=== PATIENT | female | born 2000 | race African-American/Black ===

== ENCOUNTER 2023-01-20 08:59 | Emergency (ER) | payer MEDICAID, SELFPAY ==
--- NOTE | ~2023-01-20 | US_ITS ---
US OB follow up DATE: 01/20/2023 11:16 INDICATION: Abdominal pain for one day TECHNIQUE: Real-time imaging and Doppler analysis COMPARISON: None FINDINGS: Live hall intrauterine gestation, fetus in longitudinal lie, vertex presentation with heart rate of 141 bpm. The placenta is anterior, lower margin approximately 2.1 cm above the cervix. Subjectively normal amount of amniotic fluid. Biparietal diameter 3.12 cm; 15 weeks 6 days Head circumference 11.53 cm; 15 weeks 5 days Abdominal circumference 9.36 cm; 15 weeks 4 days Femur length 1.81 cm; 15 weeks 3 days Composite age by [place] formula is 15 weeks 5 days +/- 1 week 1 day with CARLITO of 07/09/2023, compared to 07/2023 by LMP. Estimated weight is 125 +/- 19 grams. Estimated weight-GP: 18%. Head circumference/abdominal circumference 1.23, within normal range of 1.0, 671.35 Femur length/head circumference 15.67, within normal range of 13.87-16.67. IMPRESSION: Live hall intrauterine gestation, estimated gestational age of 15 weeks 5 days +/- 1 week 1 day; CARLITO: 07/09/2023 Reviewed, dictated and finalized at [facility] Reviewed, dictated and finalized at [facility].
[2023-01-20 09:00] VITALS: BP 102/69; PULSE 100; RESP 18; TEMP 36.1; O2SAT 100
[2023-01-20 09:34] VITALS: BP 95/81; PULSE 91; RESP 18; O2SAT 100
--- NOTE | 2023-01-20 10:03 | ED.GENADULT ---
HPI - General Adult General Chief complaint: Headache Stated complaint: migraine, abd pain, 15 weeks Time Seen by Provider: 01/20/23 09:04 Source: patient Mode of arrival: ambulatory Limitations: no limitations History of Present Illness HPI narrative: This is a 22-year-old female who is around 15 weeks and presents to the ED with chief complaint of headache and abdominal pain since 7 PM last night. Reports that the headache kind of came out of nowhere and she does not have a history of migraines. She does state that she has had some increased headaches during this but they usually only last an hour. Reports a have 10 headache and located in the bilateral frontal sides and radiates throughout the head. She also reports mild abdominal pain that is sharp at times but seems to be more intermittent. She states that this is less of a concern for her at this point. Endorses occasional nausea but no vomiting. Endorses photophobia. States she has not taken any medications for this. Denies fevers, chills, congestion, sore throat, cough, chest pain, shortness of breath, diarrhea, urinary problems. Denies syncope, head injury, numbness, weakness, speech change, vision loss. She states her OB is Dr. Osman and she had an ultrasound confirming a few weeks ago. Related Data Allergies Allergy/AdvReac Type Severity Reaction Status Date / Time peanut Allergy Intermediate Swelling Verified 01/20/23 09:33 Review of Systems Review of Systems: All systems as dictated in HPI Exam Narrative: GENERAL: Well-appearing, well-nourished, and in no acute distress. HEAD: Normocephalic, atraumatic. EYES: PERRLA and EOMI. photophobia present. ENT: Nares clear, no rhinorrhea or epistaxis. Mucous membranes moist. Oropharynx without tonsillar hypertrophy exudate or other lesions. NECK: Supple. No adenopathy or masses. CHEST: No respiratory distress. Clear to auscultation. No wheezes rales or rhonchi HEART: Regular rate and rhythm. No murmur heard. Normal peripheral pulses. ABDOMEN: Soft, nontender, nondistended, normal active bowel sounds. MSK: Normal range of motion. No edema. SKIN: Warm, dry, no rash. NEURO: Alert and oriented x3. No focal deficits. Cranial nerves II through XII intact. 5 out of 5 strength and sensation in the upper and lower extremities. Coordination intact. Ambulatory. PSYCH: Normal mood and affect. Course Course Emergency Course: Consult 12 00: Spoke with Dr. Reveles (OB) who agrees that she is able to be discharged home. Recommends Excedrin tension headache. Does not feel that she needs head imaging at this point. He is comfortable with her following up as scheduled in 2 days. Reevaluation 1205: patient feeling much much improved from earlier. She would like to go home and follow-up as scheduled with her OB appointment in 2 days. Vital Signs Vital signs: Vital Signs Temperature 97.0 F L 01/20/23 09:00 Pulse Rate 100 01/20/23 09:00 Respiratory Rate 18 01/20/23 09:00 Blood Pressure 102/69 01/20/23 09:00 Pulse Oximetry 100 01/20/23 09:00 Oxygen Delivery Room Air 01/20/23 09:00 Temperature 97.0 F L 01/20/23 09:00 Pulse Rate 86 01/20/23 12:12 Respiratory Rate 18 01/20/23 12:12 Blood Pressure 98/74 L 01/20/23 12:12 Pulse Oximetry 99 01/20/23 12:12 Oxygen Delivery Room Air 01/20/23 09:00 Medical Decision Making MDM Narrative Medical decision making narrative: This is a 22-year-old female who presents to the ED with chief complaint of migraine headache and abdominal pain beginning at 10 PM last night. Vitals are normal. Exam is benign. Basic labs and urinalysis are unremarkable. OB Ultrasound: Live hall intrauterine gestation, estimated gestational age of 15 weeks 5 days +/- 1 week 1 day; CARLITO: 07/09/2023?. She has improved greatly with Tylenol and Benadryl. She feels ready to go home on my reevaluation. Symptoms consistent with mi
[2023-01-20] MEDS: ACETAMINOPHEN 500 MG TABLET 1000 MG PO (10:11)
[2023-01-20] MEDS: diphenhydrAMINE HCl INJ 50 MG/ML VIAL 25 MG IV PUSH (10:12)
[2023-01-20 10:20] LABS: Basophils Percent Auto 0.3 % (0.2-1.2); Eosinophils Absolute Auto 0.1 K/mm3 (0-0.3); Eosinophils Percent Auto 1.2 % (0-4.4); Hematocrit 32.4 % (37.0-47.0); Immature Granulocyte Absolute 0.02 K/mm3 (0.00-0.031); Immature Granulocyte Percent A 0.2 % (0-0.5); Lymphocytes Absolute Auto 0.91 K/mm3 (0.9-3.2); Lymphocytes Percent Auto 9.6 % (18.3-44.2); Mean Corpuscular Hemoglobin 33.3 pg (26-34); Mean Corpuscular Volume 98.2 fl (80-100); Mean Platelet Volume 11.9 fl (7.4-10.4); Monocytes Absolute Auto 0.6 K/mm3 (0.1-0.6); Monocytes Percent Auto 6.2 % (2.6-8.5); Neutrophils Absolute Auto 7.8 K/mm3 (1.3-6.7); Neutrophils Percent Auto 82.5 % (45.5-73.1); Platelet Count Result 161 k/mm3 (150-375); Red Cell Distribution Width 12.2 % (11.5-14.5); White Blood Count 9.5 K/mm3 (4.5-10.0)
[2023-01-20 10:21] LABS: Appearance Urine Clear (Clear); Bilirubin Urine Negative (Negative); Blood Urine Negative (Negative); Color Urine Yellow (Yellow); Glucose Urine UA Negative (Negative); Ketones Urine Negative (Negative); Leukocyte Esterase Ur Negative LEU/UL (Negative); Nitrate Urine Negative (Negative); Protein Urine Negative (Negative); Specific Grav Ur 1.005 (1.001-1.035); Urobilinogen Urine 0.2 mg/dL (<2.0); pH Urine 7.5 (5.0-9.0)
[2023-01-20 10:32] LABS: Alanine Aminotransferase 36 U/L (6-35); Albumin Level 4.1 g/dL (3.5-5.1); Alkaline Phosphatase 46 U/L (38-126); Anion Gap 5 mmol/L (8-16); Aspartate Amino Transferase 31 U/L (14-36); Bilirubin,Total 0.3 mg/dL (0.2-1.3); Blood Urea Nitrogen 7 mg/dL (7-17); Calcium 9.2 mg/dL (8.4-10.2); Carbon Dioxide 26 mmol/L (22-30); Chloride 103 mmol/L (98-107); Estimated CRCL calculation 130 ml/min; Estimated Glomerular Filt Rate > 60; Glucose 81 mg/dL (65-110); Potassium 3.9 mmol/L (3.4-5.0); Sodium 134 mmol/L (137-145)
[2023-01-20 10:36] LABS: Add Urine Microscopic? NO
--- NOTE | 2023-01-20 11:21 | PC.NURSE ---
Patient report received from NEVAEH Tran. All questions answered and care of patient assumed.
[2023-01-20 12:12] VITALS: BP 98/74; PULSE 86; RESP 18; O2SAT 99
== END 2023-01-20 12:14 | disposition home or self-care (01) ==
PROVIDERS: Emergency Provider Physician Assistant; PCP Obstetrics & Gynecology
DX: O26.892 Other specified pregnancy related conditions, second trimester (principal); R51.9 Headache, unspecified; Z3A.15 15 weeks gestation of pregnancy
CPT/HCPCS: 36415; 76816; 80053; 81003; 85025; 96374; 99284; A9270; J1200

== ENCOUNTER 2023-02-25 18:03 | Observation (INO) | payer BC, SELFPAY ==
[2023-02-25 18:45] VITALS: PULSE 103; RESP 16; TEMP 37.3
[2023-02-25 18:47] VITALS: BP 103/56; PULSE 107
[2023-02-25 18:56] LABS: Appearance Urine Cloudy (Clear); Bacteria Urine 2+ /hpf; Bilirubin Urine Negative (Negative); Blood Urine Negative (Negative); Color Urine Yellow (Yellow); Glucose Urine UA Negative (Negative); Ketones Urine Negative (Negative); Leukocyte Esterase Ur 3+ LEU/UL (NEGATIVE); Nitrate Urine Negative (Negative); Non Pathogenic Casts 0-2; Protein Urine 1+ mg/dL (Negative); RBC Urine 0-2 /hpf (0-2); Specific Grav Ur 1.014 (1.001-1.035); Squamous Epithelial Cell Urine Moderate /hpf (Few); WBC Urine >100 /hpf (0-3)
[2023-02-25 19:01] LABS: Add Urine Microscopic? YES
[2023-02-25] MEDS: ACETAMINOPHEN 500 MG TABLET 1000 MG PO (19:36)
--- NOTE | 2023-02-25 20:35 | PC.NURSE ---
called Dr. Reveles notified pt admission for back pain with cramping. UA result and pain control reported. discharge order received with arturo
[2023-02-25] MEDS: NITROFURANTOIN MONOHYD MACROCR 100 MG CAP PO (20:40)
--- NOTE | 2023-03-24 21:22 | PM.OBTRLD ---
OB - Triage/Final Diagnosis Visit Information Comments/Additional reasons for admission: I have assessed the risk for this patient, Yonathan Carroll, and determined that she would benefit from observation care. Evaluation Laboratory results: Laboratory Tests 02/25/23 18:31 Urine Color Yellow Urine Appearance Cloudy H Urine pH 8.0 Ur Specific [employer] 1.014 Urine Protein 1+ H Urine Glucose (UA) Negative Urine Ketones Negative Ur Blood (Man) Negative Urine Nitrate Negative Urine Bilirubin Negative Urine Urobilinogen 1.0 Ur Leukocyte Esterase 3+ H Urine RBC 0-2 Urine WBC >100 H Ur Squamous Epith Cells Moderate Urine Bacteria 2+ H Urine Casts 0-2 Final Diagnosis (1) Back pain affecting : Code(s): O99.891 - Other specified diseases and conditions complicating ; M54.9 - Dorsalgia, unspecified Status: Acute
--- NOTE | 2023-03-24 21:29 | PM.OBPNVD ---
OB - PN: Subj Subjective Date/time seen: 03/24/23 21:29 22-year-old had approximately 20 weeks with fever and low back pain. She is evaluated. She had a Urinalysis and was found have urinary tract infection. She was treated for urinary tract infection. She is discharged home. Interval history: 22-year-old OB - PN A/P Assessment and Plan (1) Fever: Code(s): R50.9 - Fever, unspecified Status: Acute Plan 03/24/23 21:29 22-year-old had approximately 20 weeks with fever and low back pain. She is evaluated. She had a Urinalysis and was found have urinary tract infection. She was treated for urinary tract infection. She is discharged home. Time Spent With Patient Time: Total time spent is greater than 50% in coordination of care (as documented) at patient's floor/unit and/or counseling patient: Review of Systems Review of Systems: All systems reviewed & are unremarkable except as noted in HPI and below Constitutional: Constitutional: Denies chills, Denies fatigue, Denies fever(s) and Denies weakness Eyes: Eyes: Denies blurry vision, Denies change in vision, Denies loss of peripheral vision, Denies loss of vision, Denies other visual disturbances and Denies eye pain ENT: Denies vertigo, Denies dizziness, Denies hearing loss, Denies mouth pain, Denies nasal obstruction, Denies neck mass and Denies neck pain Cardiovascular: Cardiovascular: Denies chest pain, Denies diaphoresis, Denies syncope, Denies leg edema and Denies dyspnea Respiratory: Respiratory: Denies chest congestion, Denies cough, Denies hemoptysis, Denies dyspnea and Denies wheezing Gastrointestinal: Gastrointestinal: Denies abdominal pain, Denies constipation, Denies diarrhea, Denies nausea and Denies vomiting Genitourinary: Genitourinary: Denies hematuria, Denies change in libido, Denies nocturia, Denies genital lesions, Denies flank pain and Denies urinary urgency Musculoskeletal: Musculoskeletal: Denies abnormal gait, Denies back pain, Denies myalgias, Denies arthralgias, Denies joint swelling, Denies muscle weakness and Denies neck pain Integumentary/Breasts: Skin/Breast: Denies swelling, Denies breast pain, Denies breast mass, Denies dry skin, Denies nipple discharge, Denies unusual bruising and Denies jaundice Neurologic: Denies Neuro-related abnormal movements, Denies Abnormal speech present, Denies abnormal gait, Denies behavioral changes, Denies confusion, Denies vertigo, Denies dizziness, Denies syncope, Denies loss of vision, Denies memory loss, Denies convulsions and Denies weakness Psychiatric: Psychiatric: Denies abnormal sleep pattern, Denies behavioral changes, Denies change in libido, Denies confusion, Denies depression, Denies anhedonia and Denies memory loss Endocrine: Endocrine: Reports no additional endocrine complaints, Denies change in libido and Denies fatigue Hematologic/Lymphatic: Hematologic/Lymphatic: Reports no additional hematologic/lymphatic complaints Allergic/Immunologic: Allergic/Immunologic: Reports no additional allergic/immunologic complaints and Denies wheezing Exam Const: General: cooperative, healthy appearing, comfortable and no acute distress Orientation/consciousness: oriented to person, oriented to place and oriented to time HENMT: Head: normal to inspection Ears: external ears normal Face/Nose/Sinus: Normal external nose present and normal facial exam Face and sinus: normal facial exam Eyes: General: appearance normal, both eyes and all related structures Neck: Neck: normal visual inspection, trachea midline and supple Resp: Auscultation: clear to auscultation bilaterally, no crackles, no rales, no rhonchi and no wheezes Cardio: Rate: regular rate Rhythm: regular rhythm Heart sounds: no click, no murmurs and no rubs GI: GI Palp: No abdominal tenderness, No Soft to palpation, No Tenderness to palpation present (GI) and No Palpable mass present Auscultation: normal
== END 2023-02-25 20:46 | disposition home or self-care (01) ==
PROVIDERS: Admitting Provider Obstetrics & Gynecology; Visit Provider Obstetrics & Gynecology
DX: O99.891 Other specified diseases and conditions complicating pregnancy (principal); M54.9 Dorsalgia, unspecified; R50.9 Fever, unspecified; Z3A.20 20 weeks gestation of pregnancy
CPT/HCPCS: 81001; 87077; 87086; 87186; A9270; G0378; G0379

== ENCOUNTER 2023-02-28 08:15 | Observation (INO) | payer BC, SELFPAY ==
[2023-02-28 08:39] VITALS: BP 113/66; PULSE 128; RESP 18; TEMP 38.2
[2023-02-28 08:48] VITALS: TEMP 38.2
[2023-02-28 09:09] VITALS: TEMP 38.2
[2023-02-28] MEDS: ACETAMINOPHEN 500 MG TABLET 1000 MG PO (09:09)
[2023-02-28] MEDS: cefTRIAXone 1 GM VIAL IM (09:10)
--- NOTE | 2023-02-28 09:18 | OBADM ---
This patient, Yonathan Carroll, admitted to the OB room OB Post 116 for observation. Patient/family oriented to hospital policies and general routines including ID bracelet, bed and alarms, visiting hours, pain management, procedures, bathroom and other care routines, personal items, smoking policy, room service/diet, and visiting hours. Patient/Family are encouraged to report perceived risks to care and to ask questions if they do not understand what they are told or what they should do.
[2023-02-28 10:00] VITALS: TEMP 37.1
[2023-02-28 11:04] VITALS: BP 99/57; PULSE 95; TEMP 36.2
--- NOTE | 2023-03-25 12:16 | PM.OBTRLD ---
OB - Triage/Final Diagnosis Visit Information Comments/Additional reasons for admission: I have assessed the risk for this patient, Yonathan Carroll, and determined that she would benefit from observation care. Final Diagnosis (1) Fever: Code(s): R50.9 - Fever, unspecified Status: Acute
== END 2023-02-28 11:32 | disposition home or self-care (01) ==
PROVIDERS: Admitting Provider Obstetrics & Gynecology; Visit Provider Obstetrics & Gynecology
DX: O99.891 Other specified diseases and conditions complicating pregnancy (principal); R50.9 Fever, unspecified; Z3A.21 21 weeks gestation of pregnancy
CPT/HCPCS: 96372; A9270; G0378; G0379; J0696

== ENCOUNTER 2023-06-07 11:26 | Observation (INO) | payer OTHER, SELFPAY ==
[2023-06-07] VITALS (7 sets, daily range): BP systolic 100–111; BP diastolic 52–66; PULSE 90–98; TEMP 36.4; BMI 23.1
--- NOTE | ~2023-06-07 | US_ITS ---
EXAMINATION: US OB follow up DATE: 06/07/2023 12:52 INDICATION: Bleeding. Third trimester. TECHNIQUE: Real-time ultrasound of the pelvis was performed. COMPARISON: Ultrasound 01/20/2023 FINDINGS: There is a single living fetus in vertex presentation. The placenta is anterior. heart rate is 143 beats per minute (bpm). The amniotic fluid index is 15.0 cm, which is normal. The following biometric data were obtained: Biparietal diameter (BPD): 8.5 cm; head circumference (HC): 32.0 cm; abdominal circumference (AC): 29 .3 cm; femur length (FL): 6.5 cm. These measurements are concordant. Estimated weight is 2260 g +/- 339 g, which correlates with the 11th percentile when 07/09/23 is used as estimated date of delivery. As single measurements, these parameters are each equal to the following estimated gestational ages: BPD: 34 weeks 2 days. HC: 36 weeks 0 days. AC: 33 weeks 2 days. FL: 33 weeks 3 days. estimated gestational age based solely on measurements from this exam is 34 weeks 2 days +/- 2 weeks 3 days. IMPRESSION: 1. Single living fetus in vertex presentation. 2. Estimated weight is 2260 g +/- 339 g, which correlates with the 11th percentile when 07/09/23 is used as estimated date of delivery. Reviewed, dictated and finalized at location [facility]. INSPECTOR
--- NOTE | 2023-06-07 11:26 | OBADM ---
This patient, Yonathan Carroll, admitted to the OB room OB Post 113 for observation. Patient/family oriented to hospital policies and general routines including ID bracelet, bed and alarms, visiting hours, pain management, procedures, bathroom and other care routines, personal items, smoking policy, room service/diet, and visiting hours. Patient/Family are encouraged to report perceived risks to care and to ask questions if they do not understand what they are told or what they should do.
--- NOTE | 2023-06-07 11:40 | PC.NURSE ---
pt reports being a clinical in [place] when she went to the bathroom there she had blood in the toilet and on the paper when she wiped. Her instructor then had her go to the ER for evaluation. The pt stated that they were doing the ultrasound but stopped because the ER provider told them that Dr. Reveles wanted her to come to [place] they stopped. The pt then came to L&D at [place]. On arrival pt went to the bathroom and she said she didnt have any blood in the toilet but did have some on the tissue. Pt denies blood in her underwear. She denies cramps and contractions at this time but pt stated she did have some cramping this AM before using the bathroom in [place].
--- NOTE | 2023-06-07 13:25 | PC.NURSE ---
Dr. Reveles notified of pt ultrasound. tracing reviewed with provider. MD would like further information on placenta. Radiologist to be contacted. Regular diet order obtained.
--- NOTE | 2023-06-07 14:26 | PC.NURSE ---
Dr. Reveles updated with placenta update from ultrasound. tracing reviewed. Uterine irritability discussed. MD doyle with give bolus of LR.
[2023-06-07] MEDS: LACTATED RINGERS 1,000 ML 999 ML IV CONT (14:40)
--- NOTE | 2023-06-07 15:36 | PC.NURSE ---
Dr. Reveles updated on pt status. tracing and uterine activity reviewed with provider. Pt denies pain. Pt does not feel contractions. Discharge order received.
--- NOTE | 2023-07-04 21:16 | PM.OBTRLD ---
OB - Triage/Final Diagnosis Visit Information Comments/Additional reasons for admission: I have assessed the risk for this patient, Yonathan Carroll, and determined that she would benefit from observation care. Final Diagnosis (1) Vaginal bleeding during : Code(s): O46.90 - Antepartum hemorrhage, unspecified, unspecified trimester Status: Acute
== END 2023-06-07 16:04 | disposition home or self-care (01) ==
PROVIDERS: Admitting Provider Obstetrics & Gynecology; Visit Provider Obstetrics & Gynecology
DX: O46.93 Antepartum hemorrhage, unspecified, third trimester (principal); Z3A.35 35 weeks gestation of pregnancy
CPT/HCPCS: 76816; G0379; J7120

== ENCOUNTER 2023-06-24 13:08 | Outpatient (RCR) | payer OTHER, SELFPAY ==
[2023-06-24 13:58] VITALS: BP 110/65; PULSE 108
== END 2023-09-22 23:59 | disposition home or self-care (01) ==
LOC: ANHOBOP 13:08
PROVIDERS: Visit Provider Obstetrics & Gynecology
DX: O36.8130 Decreased fetal movements, third trimester, not applicable or unspecified (principal); Z3A.38 38 weeks gestation of pregnancy
CPT/HCPCS: 59025

== ENCOUNTER 2023-07-11 06:09 | Inpatient (IN) | payer OTHER, SELFPAY ==
[2023-07-11] VITALS (50 sets, daily range): BP systolic 75–140; BP diastolic 48–113; PULSE 59–130; RESP 16; TEMP 36.4–37.2; O2SAT 93–100; BMI 23.6
[2023-07-11 06:57] LABS: Basophils Percent Auto 0.3 % (0.2-1.2); Eosinophils Percent Auto 0.6 % (0-4.4); Hematocrit 30.4 % (37.0-47.0); Hemoglobin 9.8 g/dL (12.0-15.0); Immature Granulocyte Absolute 0.04 K/mm3 (0.00-0.031); Immature Granulocyte Percent A 0.6 % (0-0.5); Lymphocytes Absolute Auto 1.42 K/mm3 (0.9-3.2); Lymphocytes Percent Auto 21.5 % (18.3-44.2); Mean Corpuscular HGB Conc 32.2 g/dl (32-36); Mean Corpuscular Hemoglobin 29.8 pg (26-34); Mean Corpuscular Volume 92.4 fl (80-100); Mean Platelet Volume 10.7 fl (7.4-10.4); Monocytes Absolute Auto 0.6 K/mm3 (0.1-0.6); Monocytes Percent Auto 9.1 % (2.6-8.5); Neutrophils Absolute Auto 4.5 K/mm3 (1.3-6.7); Neutrophils Percent Auto 67.9 % (45.5-73.1); Platelet Count Result 251 k/mm3 (150-375); Red Blood Count 3.29 M/mm3 (4.2-5.4); Red Cell Distribution Width 14.9 % (11.5-14.5); White Blood Count 6.6 K/mm3 (4.5-10.0)
[2023-07-11] MEDS: LACTATED RINGERS 1,000 ML 125 ML IV CONT (07:03)
[2023-07-11] MEDS: OXYTOCIN 30 UNITS/NS 500 ML 30 UNITS/500 ML BAG 6 UNITS IV CONT (07:05)
--- NOTE | 2023-07-11 07:25 | LDADM ---
This patient, Yonathan Carroll, was admitted to Labor/Delivery/Recovery 104 on 07/11/23 at 06:09. Plans for labor, pain management and were discussed with patient. Patient/family oriented to hospital policies and general routines including ID bracelet, bed and alarms, visiting hours, pain management, procedures, bathroom and other care routines, personal items, smoking policy, room service/diet and guest tray routines, infant security routines, and visiting hours. Patient/Family are encouraged to report perceived risks to care and to ask questions if they do not understand what they are told or what they should do. See OBIX for further documentation.
--- NOTE | 2023-07-11 08:35 | WPDANESEPP ---
Anes - Eval Pre Procedure Procedure: Labor epidural Date/Time: 07/11/23 08:35 Surgeon: Abdirizak Preop Diagnosis: Pain during labor Pre Op Diagnosis: IOL Patient Data Age: 22 Gender: F Height: 1.65 m Weight: 64.5 kg Last Vital Signs Temp 36.6 C 07/11/23 07:45 Pulse 72 07/11/23 08:31 BP 75/56 L 07/11/23 08:31 O2 Del Method Room Air 07/11/23 07:18 Allergies Allergy/AdvReac Type Severity Reaction Status Date / Time peanut Allergy Severe Anaphylactic Verified 06/24/23 14:00 Shock Home Medications Medication Instructions Recorded Confirmed Type albuterol sulfate 90 mcg/actuation 2 puff inhalation QID PRN Wheezing 06/24/23 06/24/23 History aerosol inhaler prenat.vits,lourdes,rav-yyei-fyyfv 1 tablet PO DAILY 06/24/23 07/11/23 History ferrous sulfate 27 mg iron tablet 27 mg PO DAILY 07/11/23 07/11/23 History Laboratory Tests 07/11/23 06:45 WBC 6.6 K/mm3 (4.5-10.0) RBC 3.29 L M/mm3 (4.2-5.4) Hgb 9.8 L g/dL (12.0-15.0) Hct 30.4 L % (37.0-47.0) MCV 92.4 fl (80-100) MCH 29.8 pg (26-34) MCHC 32.2 g/dl (32-36) RDW 14.9 H % (11.5-14.5) Plt Count 251 D k/mm3 (150-375) MPV 10.7 H fl (7.4-10.4) Immature Gran % (Auto) 0.6 H % (0-0.5) Neut % (Auto) 67.9 % (45.5-73.1) Lymph % (Auto) 21.5 % (18.3-44.2) [place] % (Auto) 9.1 H % (2.6-8.5) Eos % (Auto) 0.6 % (0-4.4) Baso % (Auto) 0.3 % (0.2-1.2) Lymph # (Auto) 1.42 K/mm3 (0.9-3.2) [place] # (Auto) 0.6 K/mm3 (0.1-0.6) Eos # (Auto) 0.0 K/mm3 (0-0.3) Baso # (Auto) 0.0 K/mm3 (0.0-0.1) Abs Immat Gran (auto) 0.04 H K/mm3 (0.00-0.031) Absolute Neuts (auto) 4.5 K/mm3 (1.3-6.7) Absolute Nucleated RBC 0.0 K/mm3 (0.0-0.012) Nucleated RBC % 0.0 % (0.0-0.2) RPR Pending Blood Type A Positive Antibody Screen Negative Patient hx anesthesia problems: none Family hx anesthesia problems: none Results Review: All pre-operative results and documents have been reviewed as part of the pre-operative evaluation. [facility] Family History Family History Mother Breast cancer Asthma Grandparent Ovarian cancer Social History Social History Smoking status: Former smoker Tobacco type: e-cigarettes/vaping Smoking end date: 12/04/22 Substance use: never Do You Feel Safe in your Home?: Yes Lack of Transportation: No Lack of Food: Never True Current Housing: I Have Housing Concerned About Future Housing: No Difficulty Paying Gas/Electric Bills: No Difficulty Paying for Meds: No Currently Unemployed: No Education: Trade/Vocational Certificate Difficulty w/ Childcare or Family Care: No Spiritual care concerns: No Exam Day of Procedure 07/11/23 08:35 Patient weight: normal Neurological: alert and oriented
--- NOTE | 2023-07-11 08:53 | WPDHPUPDATE1 ---
History and Physical Update Update Date/Time: 07/11/23 08:53 22-year-old female 1 at term presents for an elective induction of labor. 3-4 cm, thin, low, arom-clear reassuring heart tones, expected management History and Physical has been reviewed, including an updated exam of the patient. There are NO changes in the patient's condition. Risks, benefits, and alternatives have been discussed and questions answered. Patient agrees to proceed with procedure.
[2023-07-11 11:12] LABS: Rapid Plasma Reagin Non-Reactive (NonReactive)
--- NOTE | 2023-07-11 11:37 | P.PCNOB_ITS ---
OB - Vaginal Delivery Note Procedure Delivery date: 07/11/23 Induction method: AROM and Per Pitocin Protocol Delivery monitor: External FHT and External Uterine Route of delivery: Episiotomy description: None Laceration Description: None Quantitative Blood Loss (ml): 75 Anesthesia type: Epidural Disposition: Floor Complications: No immediate complications [place] Baby Date of : 07/11/23 Time of : 11:28 Weeks of gestation at delivery: 40 score one minute: 8 score five minutes: 9
[2023-07-11] MEDS: OXYTOCIN 30 UNITS/NS 500 ML 30 UNITS/500 ML BAG 125 UNITS IV CONT (12:09)
[2023-07-11] MEDS: WITCH HAZEL 40 PADS 1 PAD TOPICAL (13:56)
--- NOTE | 2023-07-11 14:10 | PC.NURSE ---
Patient transferred to post room #292 via wheelchair. Support person present. Oriented to unit, room, information board, rooming in, admission packet and security measures. Patient verbalizes understanding.
[2023-07-11] MEDS: IBUPROFEN 600 MG TABLET PO (15:43)
[2023-07-11 15:44] LABS: Amphetamine Screen Urine Negative (Negative); Barbiturate Screen Urine Negative (Negative); Benzodiazepines Screen Urine Negative (Negative); Cannabinoid Screen Urine Positive (Negative); Cocaine Screen Urine Negative (Negative); Methadone Screen Urine Negative (Negative); Opiate Screen Urine Negative (Negative); Phencyclidine Screen Urine Negative (Negative)
[2023-07-11] MEDS: LANOLIN (LANSINOH) 7.5 GM CREAM 1 APPLIC TOPICAL (15:44)
--- NOTE | 2023-07-11 15:50 | PC.NURSE ---
[id number] Introductions were made, then consulted with patient to assess needs related to . Discussed with mother her?plans to feed?her infant, the?experience so far with the first feeding going well without pain. Mother shared her desire to pump in two week as she will be going back to school. We discussed learning to pace bottle feed and having a flange fitting before she goes home. Encouraged understanding of the benefits of skin to skin (demonstrating unwrapping infant and placing upright on her chest), stimulating with massage touch, changing positions to encourage wakefulness, how to watch for early feeding cues, responsive feeding, feeding on demand (aiming for 8-12 times in 24 hours, about every 2-3 hours), milk production, building/maintaining a milk supply, duration of feeding, signs of adequate intake/output and how to record on the feeding sheet. Mother works well with her with encouragement and education. Resources provided for inpatient and outpatient services with the feeding sheet, mom/baby guide and name written on the communication board. Mother voiced understanding of information and will call if there is a request for assistance. Reported to the Primary RN.
[2023-07-11] MEDS: DOCUSATE SODIUM 100 MG CAPSULE PO (20:08)
[2023-07-11] MEDS: POLYSACCHARIDE IRON COMPLEX 150 MG CAPSULE PO (20:08)
[2023-07-11] MEDS: ACETAMINOPHEN 325 MG TABLET 650 MG PO (23:50)
[2023-07-12] MEDS: IBUPROFEN 600 MG TABLET PO ×4 (01:42→19:32)
[2023-07-12 03:53] VITALS: BP 107/59; PULSE 63; RESP 18; TEMP 36.8; O2SAT 99
[2023-07-12 06:40] LABS: Hematocrit 30.6 % (37.0-47.0); Hemoglobin 9.7 g/dL (12.0-15.0)
--- NOTE | 2023-07-12 07:41 | WPDANLDPN2 ---
Anes-Prog Note L&D Date/Time: 07/12/23 07:41 Neuro status: Neuro function grossly intact. Vital Signs: Last Vital Signs Temp 36.8 C 07/12/23 03:53 Pulse 63 07/12/23 03:53 Resp 18 07/12/23 03:53 BP 107/59 L 07/12/23 03:53 Pulse Ox 99 07/12/23 03:53 O2 Del Method Room Air 07/11/23 07:18 Pain score (VAS): 0 I/O: Intake & Output 07/11/23 07/11/23 07/12/23 15:59 23:59 07:59 Intake Total 500 240 Output Total 150 Balance 350 240 Patient feedback: Patient satisfied with anesthetic care.
--- NOTE | 2023-07-12 07:46 | PM.OBPNVD ---
OB - PN: Subj Subjective Date/time seen: 07/12/23 07:46 Interval history: pp day 1 doing well would like d/c home OB - PN: Obj Data Labs 07/12/23 06:28 Labs: Laboratory Results - last 24 hr 07/11/23 07/11/23 07/12/23 06:45 14:21 06:28 Hgb 9.7 L Hct 30.6 L Urine Opiates Screen Negative Urine Methadone Screen Negative Ur Barbiturates Screen Negative Ur Phencyclidine Scrn Negative Ur Amphetamine Screen Negative U Benzodiazepines Scrn Negative Urine Cocaine Screen Negative U Cannabinoids Screen Positive A RPR Non-reactive Antibody Screen Negative OB - PN A/P Plan day: 1 Plan: routine care and discharge home Time Spent With Patient Time: Total time spent is greater than 50% in coordination of care (as documented) at patient's floor/unit and/or counseling patient: Review of Systems Review of Systems: All systems reviewed & are unremarkable except as noted in HPI and below Exam Const: General: cooperative, healthy appearing and comfortable GI: Inspection: normal to inspection Skin: General skin exam: normal color Neuro: General: patient oriented x3 Extrem: Right lower extremity: normal to inspection Left lower extremity: normal to inspection Psych: Appearance: grossly normal
--- NOTE | 2023-07-12 07:49 | PM.OBDSVD ---
DS: Admitting Diagnosis Discharge Date 07/12/23 Admitting Diagnosis IOL DS: Discharge Diagnosis Discharge Diagnosis (1) Vaginal delivery: Code(s): O80 - Encounter for full-term uncomplicated delivery Status: Acute OB - DS: Summary OB Procedures : None OB Procedures Intrapartum: Spontaneous Vag Delivery OB Procedures: : None Peripartum Data Laceration Description: None Episiotomy description: None Time Spent with Patient Time attestation: Total time spent providing and/or coordinating discharge services: DS: Data Data Completed and Pending Labs on day of discharge: Labs from last 24 hours 07/12/23 07/11/23 07/11/23 06:28 14:21 06:45 Hgb 9.7 L Hct 30.6 L Urine Opiates Screen Negative Urine Methadone Screen Negative Ur Barbiturates Screen Negative Ur Phencyclidine Scrn Negative Ur Amphetamine Screen Negative U Benzodiazepines Scrn Negative Urine Cocaine Screen Negative U Cannabinoids Screen Positive A RPR Non-reactive Antibody Screen Negative Discharge Plan Discharge Attending physician on discharge: Gabriel Reveles Discharging Clinician: Kristel Chatman Patient Disposition: Home, Self-Care Activity: pelvic rest Diet: regular Patient Instructions: Antibiotic Form, How to Stop Smoking (DC), Cigarette Smoking and Your Health (GEN), Electronic Cigarettes and Your Health (GEN) Stand Alone Forms: General Discharge Information Follow-up/Referrals: Gabriel Reveles MD [Physician] - 4 Weeks Discharge Medications: New acetaminophen 325 mg Tablet 650 mg PO Q6H PRN (Reason: Mild Pain (1-3) Or Headache) Qty: 30 0RF Continued albuterol sulfate 90 mcg/actuation Hfa Aerosol Inhaler 2 puff INHALATION QID PRN (Reason: Wheezing) #2 Tablet 1 tablet PO DAILY ferrous sulfate 27 mg iron Tablet 27 mg PO DAILY Date of admission: 07/11/23 06:09 Primary Care Provider: PHYSICIAN,WINDOWS SECURITY ENGINEER Admitting Provider: Gabriel Reveles Attending physician on admission: Gabriel Reveles Condition: Stable
[2023-07-12 08:10] VITALS: BP 136/77; PULSE 81; RESP 18; TEMP 36.9; O2SAT 98
[2023-07-12] MEDS: MULTIVIT/MIN/PREN/FOL AC/IRON TABLET 1 TAB PO (08:12)
[2023-07-12] MEDS: POLYSACCHARIDE IRON COMPLEX 150 MG CAPSULE PO ×2 (08:12→17:43)
[2023-07-12] MEDS: DOCUSATE SODIUM 100 MG CAPSULE PO ×2 (08:13→17:43)
--- NOTE | 2023-07-12 14:09 | PC.NURSE ---
[id number] Purposefully rounded to assess for needs. Encouraged understanding of the benefits of skin to skin (demonstrating unwrapping infant and placing upright on her chest), stimulating with massage touch, changing positions to encourage wakefulness and since it has been almost 3 hours from the start of the last breastfeed (aiming for 8-12 times in 24 hours, about every 2-3 hours). Infant is unwrapped, diaper checked, and placed [id number] on mothers chest. Mother works well with her . Mother is able to express transitional milk well, voids, and stools are wonderful. Mother instructed to call for assistance with latching if there's pain, latch assessment for swallowing, or difficulty waking infant. [id number] Consulted with patient to assess needs related to . We reviewed working with the infant, supporting breast, protecting her nipples with an optimal deep latch, good positioning, and good hand washing. Reviewed positioning and alignment, supporting breast, off-centered (asymmetrical latch) and leading with the chin with big, open, wide gape. Infant latched optimally to the right breast in football position with minimal assistance from RN. Education given to the mother of how to visualize the suckling (with good rocking jaw motion) swallows (dropping of the lower jaw) and how to listen for drinking at the breast (the ka sound) and infant demonstrated well. The infant was able to maintain latch without discomfort to mother. Nipple care reviewed with optimal latch, good positioning and using clean hands when touching her breast. Resources used to facilitate learning were used from the visual handouts/ tool/mom and baby guide. Mother voiced understanding of the education shared, to call for assistance if the infant does not latch or if there is discomfort with . Reported to the Primary RN. 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 Assessed mother and advised on pumps and breast shield size fitting for her breast. Medela pump fitting handout shared as we discussed what pumping should look and feel like. Instructions given on cleaning, care, usage, that there should be no pain, pumping schedule for milk production, collection, and storage of human milk. Mother voiced understanding of the education shared along with mom/baby guide and feeding sheet.
[2023-07-12 19:15] VITALS: BP 115/73; PULSE 78; RESP 16; TEMP 36.9; O2SAT 100
[2023-07-12] MEDS: ACETAMINOPHEN 325 MG TABLET 650 MG PO (23:40)
[2023-07-13] MEDS: IBUPROFEN 600 MG TABLET PO (03:22)
[2023-07-13] MEDS: DOCUSATE SODIUM 100 MG CAPSULE PO (07:44)
[2023-07-13] MEDS: POLYSACCHARIDE IRON COMPLEX 150 MG CAPSULE PO (07:44)
[2023-07-13] MEDS: MULTIVIT/MIN/PREN/FOL AC/IRON TABLET 1 TAB PO (07:44)
[2023-07-13 08:03] VITALS: BP 109/72; PULSE 64; RESP 18; TEMP 36.8; O2SAT 97
--- NOTE | 2023-07-13 09:21 | PM.OBPNVD ---
OB - PN: Subj Subjective Date/time seen: 07/13/23 09:21 Interval history: pp day 1 doing well would like d/c home Patient comments: no complaints, pain well controlled and tolerating diet OB - PN: Obj Data Labs 07/12/23 06:28 OB - PN A/P Plan day: 2 Plan: routine care and discharge home Time Spent With Patient Time: Total time spent is greater than 50% in coordination of care (as documented) at patient's floor/unit and/or counseling patient: Exam Const: General: comfortable and no acute distress Resp: Effort & Inspection: normal respiratory effort Auscultation: no rales, no rhonchi and no wheezes Cardio: Rate: regular rate Heart sounds: no click, no murmurs and no rubs GI: GI Palp: Yes Soft to palpation and No Tenderness to palpation present (GI) Auscultation: normal bowel sounds Extrem: General: normal to inspection, no pedal edema and no calf tenderness
--- NOTE | 2023-07-13 09:21 | PM.OBDSVD ---
DS: Admitting Diagnosis Discharge Date July 13, 2023 Admitting Diagnosis term DS: Discharge Diagnosis Discharge Diagnosis (1) Post term , delivered: Code(s): O48.0 - Post-term Status: Acute OB - DS: Summary OB Procedures : None OB Procedures Intrapartum: Spontaneous Vag Delivery OB Procedures: : None Peripartum Data Laceration Description: None Episiotomy description: None Time Spent with Patient Time attestation: Total time spent providing and/or coordinating discharge services: Discharge Plan Discharge Attending physician on discharge: Gabriel Reveles Discharging Clinician: Kristel Chatman Patient Disposition: Home, Self-Care Activity: pelvic rest Diet: regular Discharge Instructions: Education: Mom and Baby Guide Given to: Mother Follow-Up: Call your delivering provider's office for an appointment to be seen in: 6 Weeks Mom and baby should come to the [facility] for the follow-up appointment. Appointment Date/Time: July 15, 2023 at 10:00 am What to expect at your follow-up visit: Physical Assessment Call [phone] if you are unable to keep your appointment time. BREAST CARE: * Wear a snug supportive bra. * For engorgement discomfort: Breast Feeding: * Apply warm moist washcloths * Express milk as needed to relieve engorgement * Wear loose clothing Bottle Feeding: * May apply ice packs * For sore nipples: * Identify correct latch-on * Apply warm moist washcloths before and after nursing * Air dry nipples after nursing * May apply Lansinoh cream to nipples ABDOMINAL INCISION: (if applicable) * Allow incision to air dry * Do NOT use lotions for powders on your incision * When showering, allow soap and water to run over the incision, but do not wash incision EPISIOTOMY/PERINEAL CARE: * Until bleeding stops, use your susie bottle after urinating * Change your pad frequently throughout the day * You may take sitz baths several times a day (fill your bathtub with warm water and soak for 20 minutes.) Do NOT bathe in the water * No tub baths until seen by your physician - You may shower ACTIVITY: * Rest as much as possible. * Do not exercise or lift anything heavier than your baby (such as laundry or other children.) * Avoid stairs or driving as much as possible. * Do not put anything into the vagina. No douching, tampons, or sexual activity until seen by physician. NOTIFY PHYSICIAN IF YOU HAVE ANY QUESTIONS OR IF ANY OF THE FOLLOWING SYMPTOMS OCCUR: * If your episiotomy or incision becomes red, swollen, or more painful than what you have experienced in the hospital. * If your vaginal bleeding becomes foul smelling. * If your vaginal bleeding becomes more heavy than a period or if your bleeding changes from pink to bright red. However, you may pass an occasional walnut-sized clot once or twice for the first week . * If you experience a sharp, shooting pain in you calves. * If you discover a hard, reddened area on your breast or if you experience flu-like symptoms. DIET: * Eat regular, well-balanced meals. * Drink plenty of fluids daily. If , drink to thirst. Patient Instructions: How to Stop Smoking (DC), Cigarette Smoking and Your Health (GEN), Electronic Cigarettes and Your Health (GEN) Stand Alone Forms: General Discharge Information Follow-up/Referrals: Gabriel Reveles MD [Physician] - 4 Weeks Discharge Medications: New acetaminophen 325 mg Tablet 650 mg PO Q6H PRN (Reason: Mild Pain (1-3) Or Headache) Qty: 30 0RF Continued albuterol sulfate 90 mcg/actuation Hfa Aerosol Inhaler 2 puff INHALATION QID PRN (Reason: Wheezing) prenat.vits,lourdes,[id number] Tablet 1 tablet PO DAILY ferrous sulfate 27 mg iron Tablet 27 mg PO DAILY Date of
--- NOTE | 2023-07-13 10:28 | PC.NURSE ---
Patient instructed on viewed the discharge video Mother & Baby Care, The First Two Weeks . Patient was given the opportunity and encouraged to ask questions. Patient verbalized understanding of information shared and has been given the mother/baby guide for home reference.
[2023-07-13] MEDS: ACETAMINOPHEN 325 MG TABLET 650 MG PO (11:44)
--- NOTE | 2023-07-13 14:47 | PCCCNOTE ---
Met with pt. who reports this is her first child. Reports she plans to return home with baby. FOB not mentioned. Pt. has all supplies needed at home for baby. resources provided. Pt. plans to utilize [facility] services at discharge. Plans to breastfeed. Testing positive for marijuana at admission, admits to marijuana use. Denies any other substances. Baby was not tested. Denies any case management needs.
[2023-07-15 10:33] VITALS: BP 118/84; PULSE 75; RESP 18; TEMP 36.7; O2SAT 98
== END 2023-07-13 13:05 | disposition home or self-care (01) | DRG 560 ==
LOC: ANHLDR 10:29 → ANHOB2 14:14
PROVIDERS: Admitting Provider Obstetrics & Gynecology; Visit Provider Obstetrics & Gynecology
DX: O62.3 Precipitate labor (principal); Z37.0 Single live birth; Z3A.40 40 weeks gestation of pregnancy; O48.0 Post-term pregnancy
CPT/HCPCS: 36415; 80307; 85014; 85018; 85025; 86592; 86850; 86900; 86901; A9270; J2590; J2795; J7120